=== PATIENT | male | born 1970 | race Caucasian/White ===

== ENCOUNTER 2021-04-16 01:57 | Day surgery (SDC) | payer OTHER, SELFPAY ==
[2021-04-02 13:06] VITALS: BMI 29.2
--- NOTE | 2021-04-16 09:25 | WPDANESEPPF ---
Anes - Initial Pre Proc Eval Procedure: Operation Date: 04/16/21 12:15 Proposed Procedures p Screening Colonoscopy - Last Reina MD Date/Time: 04/16/21 09:25 Surgeon: Last Reina MD Pre Op Diagnosis: neoplasm screening Patient Data Age: 50 Gender: M Height: 1.8 m Weight: 95 kg Allergies Allergy/AdvReac Type Severity Reaction Status Date / Time Penicillins Allergy Unknown unknown Verified 04/16/21 11:12 Home Medications Medication Instructions Recorded Confirmed Type acetaminophen 500 mg tablet 500 mg PO Q4-6H PRN tablet 08/17/19 04/02/21 History omeprazole 40 mg capsule,delayed 40 mg PO DAILY cap 02/12/21 04/02/21 History release tamsulosin 0.4 mg capsule 0.4 mg PO DAILY cap 02/12/21 04/02/21 History tizanidine 4 mg capsule 4 mg PO TID PRN #90 cap 02/12/21 04/02/21 Rx simvastatin 20 mg tablet 20 mg PO DAILY #90 tablet 02/17/21 04/02/21 Rx Patient hx anesthesia problems: none Family hx anesthesia problems: none PMFSH Past Medical History Medical History Body mass index (bmi) 28.0-28.9, adult (10/21/15) BPH (benign prostatic hyperplasia) (~1999) Chronic bilateral low back pain with sciatica (~2010) Chronic low back pain Former smoker GERD without esophagitis Major depress, part remis (~2015) KING (obstructive sleep apnea) (~2011) Other hyperlipidemia (~2008) Surgical History Surgical History History of surgery on left wrist 2011 - left wrist arthrodesis from multiple falls S/P epidural steroid injection (~11/2018) Family History Family History Father Family history of suicide Diabetes mellitus Grandparent Family history of malignant neoplasm Family history of chronic obstructive pulmonary disease Family history of Alzheimer's disease Social History Social History Smoking packs per day: 0.75 Smoking cigarettes per day: 15.0 Years smoked: 18 Smoking pack-years: 13.50 Smoking status: Former smoker Tobacco type: cigarettes Smoking end date: 10/04/05 Alcohol intake: current Substance use: never Substance use type: does not use Living arrangements: with family Gender identity (if verbalized by the patient): Male Spiritual care concerns: No Anes - Eval Final PreProcedure Day of Procedure 04/16/21 09:25 Patient weight: overweight Heart: regular rate and rhythm Lungs: clear to auscultation and normal air movement Airway: Mallampati scale class II Neurological: alert and oriented Last oral intake: >/= 8 hours ASA classification: II Emergent: no Anesthetic plan: proceed Anesthesia type and monitoring: general GIVS Informed Consent: The patient's anesthetic plan and its attendant risks and benefits were discussed with the patient/family/POA. Questions were solicited and answers provided to the satisfaction of the patient/family/POA.
[2021-04-16 11:13] VITALS: BP 125/85; PULSE 69; RESP 18; TEMP 36.6; O2SAT 98
[2021-04-16] MEDS: LACTATED RINGERS 1,000 ML 150 ML IV CONT (11:16)
--- NOTE | 2021-04-16 11:51 | PM.HPGS ---
History of Present Illness History of Present Illness Consent: Risks, benefits, and alternatives have been discussed and questions answered. Patient agrees to proceed with procedure. Chief complaint: neoplasm screening Narrative: Phoenix Kendall is a 50 year old male here for screening colonoscopy, he had one 10 years ago because rectal bleeding (due to hemorrhoids), now asymptomatic. Review of Systems Constitutional: Constitutional: Denies headache(s) and Denies weakness Eyes: Eyes: Denies blurry vision ENT: Reports Normal hearing present, Denies headache(s) and Denies neck pain Cardiovascular: Cardiovascular: Denies chest pain and Denies dyspnea Respiratory: Respiratory: Denies dyspnea Gastrointestinal: Gastrointestinal: Reports no additional gastrointestinal complaints Genitourinary: Genitourinary: Denies dysuria Musculoskeletal: Musculoskeletal: Denies neck pain Integumentary/Breasts: Skin/Breast: Denies dry skin Neurologic: Reports Normal hearing present, Denies headache(s) and Denies weakness Psychiatric: Psychiatric: Denies anxiety Endocrine: Endocrine: Denies change in body appearance Hematologic/Lymphatic: Hematologic/Lymphatic: Denies easy bleeding Allergic/Immunologic: Allergic/Immunologic: Denies urticaria [facility] Past Medical History Medical History (Updated 04/16/21 @ 11:52 by Last Reina MD) Body mass index (bmi) 28.0-28.9, adult (10/21/15) BPH (benign prostatic hyperplasia) (~1999) Chronic bilateral low back pain with sciatica (~2010) Chronic low back pain Colon cancer screening Former smoker GERD without esophagitis Major depress, part remis (~2015) KING (obstructive sleep apnea) (~2011) Other hyperlipidemia (~2008) Surgical History Surgical History History of surgery on left wrist 2011 - left wrist arthrodesis from multiple falls S/P epidural steroid injection (~11/2018) Family History Family History Father Family history of suicide Diabetes mellitus Grandparent Family history of malignant neoplasm Family history of chronic obstructive pulmonary disease Family history of Alzheimer's disease Social History Social History Smoking packs per day: 0.75 Smoking cigarettes per day: 15.0 Years smoked: 18 Smoking pack-years: 13.50 Smoking status: Former smoker Tobacco type: cigarettes Smoking end date: 10/04/05 Alcohol intake: current Substance use: never Substance use type: does not use Living arrangements: with family Gender identity (if verbalized by the patient): Male Spiritual care concerns: No Meds Home Medications and Allergies Home Medications Medication Instructions Recorded Confirmed Type acetaminophen 500 mg tablet 500 mg PO Q4-6H PRN tablet 08/17/19 04/02/21 History omeprazole 40 mg capsule,delayed 40 mg PO DAILY cap 02/12/21 04/02/21 History release tamsulosin 0.4 mg capsule 0.4 mg PO DAILY cap 02/12/21 04/02/21 History tizanidine 4 mg capsule 4 mg PO TID PRN #90 cap 02/12/21 04/02/21 Rx simvastatin 20 mg tablet 20 mg PO DAILY #90 tablet 02/17/21 04/02/21 Rx Allergies Allergy/AdvReac Type Severity Reaction Status Date / Time Penicillins Allergy Unknown unknown Verified 04/16/21 11:12 Vital Signs Vital Signs - 24 hr 04/16/21 11:13 Temperature 97.8 F Pulse Rate 69 Respiratory Rate 18 Blood Pressure 125/85 Pulse Oximetry 98 Exam Const: General: comfortable and no acute distress HENMT: General nose exam: Normal nares present Eyes: General: appearance normal, both eyes and all related structures Neck: Neck: no JVD Resp: Auscultation: clear to auscultation bilaterally Cardio: Rate: regular rate Rhythm: regular rhythm GI: Inspection: non-distended GI Palp: Yes Soft to palpation Skin: General skin exam: normal
[2021-04-16 12:17] VITALS: BP 109/65; PULSE 70; RESP 16; O2SAT 92
[2021-04-16 12:27] VITALS: BP 110/68; PULSE 66; RESP 18; O2SAT 98
[2021-04-16 12:37] VITALS: BP 126/86; PULSE 57; RESP 26; O2SAT 99
== END 2021-04-16 12:52 | disposition home or self-care (01) ==
PROVIDERS: PCP Family Medicine; Visit Provider Internal Medicine Gastroenterology
PROC: 0DJD8ZZ Inspection of Lower Intestinal Tract, Via Natural or Artificial Opening Endoscopic (ICD-10-PCS; CPT 45378; principal; 2021-04-16 12:15)
DX: Z12.11 Encounter for screening for malignant neoplasm of colon (principal); D12.2 Benign neoplasm of ascending colon; K64.8 Other hemorrhoids; N40.0 Benign prostatic hyperplasia without lower urinary tract symptoms; K21.9 Gastro-esophageal reflux disease without esophagitis; F32.9 Major depressive disorder, single episode, unspecified; E78.5 Hyperlipidemia, unspecified; G47.33 Obstructive sleep apnea (adult) (pediatric); Z87.891 Personal history of nicotine dependence
CPT/HCPCS: 45380; 88305; J2704; J7120

== ENCOUNTER 2021-06-23 13:19 | Outpatient (CLI) | payer OTHER, SELFPAY ==
--- NOTE | 2021-06-23 13:30 | ECG_ITS ---
Measurements Intervals [place] Rate: 53 P: 32 [place]: 136 QRS: 11 QRSD: 109 T: 10 QT: 415 QTc: 390 Interpretive Statements SINUS BRADYCARDIA DELAYED PRECORDIAL R/S TRANSITION BASELINE ARTIFACT- I, III BORDERLINE ECG Electronically Signed On 06-23-2021 13:32:25 CDT by Darin Ames D.O.
== END 2021-06-23 13:20 | disposition home or self-care (01) ==
LOC: ANHSURGERY 13:22
PROVIDERS: PCP Family Medicine; Visit Provider Urology
DX: E78.49 Other hyperlipidemia (principal); Z01.818 Encounter for other preprocedural examination; R94.31 Abnormal electrocardiogram [ECG] [EKG]
CPT/HCPCS: 93005

== ENCOUNTER 2021-07-03 01:44 | Day surgery (SDC) | payer OTHER, SELFPAY ==
--- NOTE | 2021-06-06 07:39 | PM.HPGS ---
History of Present Illness History of Present Illness Consent: Risks, benefits, and alternatives have been discussed and questions answered. Patient agrees to proceed with procedure. Chief complaint: BPH Narrative: Phoenix Kendall is a 50 year old male Who has been a patient in our practice since September 2017. He has prostatism that is becoming refractory to standard medical management. After discussion of therapeutic options, including ongoing medical therapy, TURP, other minimally invasive procedures for BPH (Rezum, Green-light ablation, etc), he has elected to proceed with Urolift. He is aware the risk of this procedure including, but not limited to, adverse cardiopulmonary events, postoperative bleeding, persistent voiding symptoms. His prostate measured 18 g by ultrasound and cystoscopy showed no median lobe. Review of Systems Cardiovascular: Cardiovascular: Denies chest pain, Denies lightheadedness, Denies palpitations and Denies dyspnea Respiratory: Respiratory: Denies dyspnea Gastrointestinal: Gastrointestinal: Denies diarrhea, Denies nausea and Denies vomiting Genitourinary: Genitourinary: Denies hematuria and Denies dysuria Endocrine: Endocrine: Denies palpitations PMFSH Past Medical History Medical History Body mass index (bmi) 28.0-28.9, adult (10/21/15) BPH (benign prostatic hyperplasia) (~1999) Chronic bilateral low back pain with sciatica (~2010) Chronic low back pain Colon cancer screening Former smoker GERD without esophagitis Major depress, part remis (~2015) KING (obstructive sleep apnea) (~2011) Other hyperlipidemia (~2008) Surgical History Surgical History History of surgery on left wrist 2011 - left wrist arthrodesis from multiple falls S/P epidural steroid injection (~11/2018) Family History Family History Father Family history of suicide Diabetes mellitus Grandparent Family history of malignant neoplasm Family history of chronic obstructive pulmonary disease Family history of Alzheimer's disease Social History Social History Smoking packs per day: 0.75 Smoking cigarettes per day: 15.0 Years smoked: 18 Smoking pack-years: 13.50 Smoking status: Former smoker Tobacco type: cigarettes Smoking end date: 10/04/05 Alcohol intake: current Substance use: never Substance use type: does not use Gender identity (if verbalized by the patient): Male Sexual Orientation (if Verbalized by the Patient): Straight or Heterosexual Spiritual care concerns: No Meds Home Medications and Allergies Home Medications Medication Instructions Recorded Confirmed Type acetaminophen 500 mg tablet 500 mg PO Q4-6H PRN tablet 08/17/19 04/02/21 History omeprazole 40 mg capsule,delayed 40 mg PO DAILY cap 02/12/21 04/02/21 History release tizanidine 4 mg capsule 4 mg PO TID PRN #90 cap 02/12/21 04/02/21 Rx simvastatin 20 mg tablet 20 mg PO DAILY #90 tablet 02/17/21 04/02/21 Rx tamsulosin 0.4 mg capsule 0.4 mg PO DAILY #90 cap 04/29/21 Rx Allergies Allergy/AdvReac Type Severity Reaction Status Date / Time Penicillins Allergy Unknown unknown Verified 04/16/21 11:12 Exam Const: General: no acute distress Resp: Effort & Inspection: normal respiratory effort GI: Inspection: non-distended GI Palp: No abdominal tenderness and No Guarding due to palpation present (GI) Auscultation: normal bowel sounds Assessment and Plan Assessment and plan (1) BPH (benign prostatic hyperplasia): Onset Date: ~1999 Qualifiers: Lower urinary tract symptom presence: unspecified whether lower urinary tract symptoms present Qualified Code(s): N40.0 - Benign prostatic hyperplasia without lower urinary tract symptoms Code(s): N40.0 - Benign pr
[2021-06-10 14:50] VITALS: BMI 29.3
--- NOTE | 2021-06-20 07:51 | PM.HPGS ---
History of Present Illness History of Present Illness Consent: Risks, benefits, and alternatives have been discussed and questions answered. Patient agrees to proceed with procedure. Chief complaint: BPH Narrative: Phoenix Kendall is a 50 year old male with longstanding bladder outlet obstruction secondary to BPH. He has been patient in our practice since September 2017 and had initially responded to tamsulosin. After couple ureter absence he re-presented with progression and voiding symptoms. Cystoscopy showed lateral lobe hyperplasia without a significant median lobe and prostate ultrasound revealed a volume of 18 g. After discussion of therapeutic options including additional medical management, TURP, other minimally invasive procedures for BPH and Uro left, he has elected for the latter. He is aware the risks including, but not limited to, postoperative bleeding, persistent voiding symptoms, hematuria. Review of Systems Cardiovascular: Cardiovascular: Denies chest pain, Denies lightheadedness, Denies palpitations and Denies dyspnea Respiratory: Respiratory: Denies dyspnea Gastrointestinal: Gastrointestinal: Denies diarrhea, Denies nausea and Denies vomiting Genitourinary: Genitourinary: Denies hematuria and Denies dysuria Endocrine: Endocrine: Denies palpitations [facility] Past Medical History Medical History Body mass index (bmi) 28.0-28.9, adult (10/21/15) BPH (benign prostatic hyperplasia) (~1999) Chronic bilateral low back pain with sciatica (~2010) Chronic low back pain Colon cancer screening Former smoker GERD without esophagitis Major depress, part remis (~2015) KING (obstructive sleep apnea) (~2011) Other hyperlipidemia (~2008) Surgical History Surgical History History of surgery on left wrist 2011 - left wrist arthrodesis from multiple falls S/P epidural steroid injection (~11/2018) Family History Family History Father Family history of suicide Diabetes mellitus Grandparent Family history of malignant neoplasm Family history of chronic obstructive pulmonary disease Family history of Alzheimer's disease Social History Social History Smoking packs per day: 1 Smoking cigarettes per day: 20.0 Years smoked: 15 Smoking pack-years: 15.00 Smoking status: Former smoker Tobacco type: cigarettes Smoking end date: 06/10/06 Alcohol intake: current Substance use: never Substance use type: does not use Gender identity (if verbalized by the patient): Male Sexual Orientation (if Verbalized by the Patient): Straight or Heterosexual Spiritual care concerns: No Meds Home Medications and Allergies Home Medications Medication Instructions Recorded Confirmed Type acetaminophen 500 mg tablet 500 mg PO Q4-6H PRN tablet 08/17/19 06/10/21 History omeprazole 40 mg capsule,delayed 40 mg PO DAILY cap 02/12/21 06/10/21 History release tizanidine 4 mg capsule 4 mg PO TID PRN #90 cap 02/12/21 06/10/21 Rx simvastatin 20 mg tablet 20 mg PO DAILY #90 tablet 02/17/21 06/10/21 Rx tamsulosin 0.4 mg PO BID 06/10/21 06/10/21 History lidocaine 5 % topical patch 1 patch TOPICAL DAILY #30 ea 06/12/21 Rx Allergies Allergy/AdvReac Type Severity Reaction Status Date / Time Penicillins Allergy Mild Rash Verified 06/10/21 14:48 Exam Const: General: no acute distress Resp: Effort & Inspection: normal respiratory effort GI: Inspection: non-distended GI Palp: No abdominal tenderness and No Guarding due to palpation present (GI) Auscultation: normal bowel sounds Assessment and Plan Assessment and plan (1) BPH (benign prostatic hyperplasia): Onset Date: ~1999 Qualifiers: Lower urinary tract symptom presence: unspecified whether lower urinary tract symp
--- NOTE | 2021-07-03 06:59 | WPDHPUPDATE1 ---
History and Physical Update Update Date/Time: 07/03/21 06:59 History and Physical has been reviewed, including an updated exam of the patient. There are NO changes in the patient's condition. Risks, benefits, and alternatives have been discussed and questions answered. Patient agrees to proceed with procedure.
[2021-07-03] MEDS: LACTATED RINGERS 1,000 ML 30 ML IV CONT (11:22)
--- NOTE | 2021-07-03 11:48 | WPDANESEPPF ---
Anes - Initial Pre Proc Eval Procedure: Operation Date: 07/03/21 12:30 Proposed Procedures p Urolift - Crow Xiao MD Date/Time: 07/03/21 11:48 Surgeon: Crow Xiao MD Pre Op Diagnosis: BPH Patient Data Age: 50 Gender: M Height: 1.8 m Weight: 92 kg Allergies Allergy/AdvReac Type Severity Reaction Status Date / Time Penicillins Allergy Mild Rash Verified 07/03/21 10:57 Home Medications Medication Instructions Recorded Confirmed Type acetaminophen 500 mg tablet 500 mg PO Q4-6H PRN tablet 08/17/19 07/03/21 History omeprazole 40 mg capsule,delayed 40 mg PO DAILY cap 02/12/21 07/03/21 History release tizanidine 4 mg capsule 4 mg PO TID PRN #90 cap 02/12/21 07/03/21 Rx simvastatin 20 mg tablet 20 mg PO DAILY #90 tablet 02/17/21 07/03/21 Rx tamsulosin 0.4 mg PO BID 06/10/21 07/03/21 History lidocaine 5 % topical patch 1 patch TOPICAL DAILY #30 ea 06/12/21 07/03/21 Rx Patient hx anesthesia problems: none Family hx anesthesia problems: none Results Review: All pre-operative results and documents have been reviewed as part of the pre-operative evaluation. [facility] Past Medical History Medical History Body mass index (bmi) 28.0-28.9, adult (10/21/15) BPH (benign prostatic hyperplasia) (~1999) Chronic bilateral low back pain with sciatica (~2010) Chronic low back pain Colon cancer screening Former smoker GERD without esophagitis Major depress, part remis (~2015) KING (obstructive sleep apnea) (~2011) Other hyperlipidemia (~2008) Surgical History Surgical History History of surgery on left wrist 2011 - left wrist arthrodesis from multiple falls S/P epidural steroid injection (~11/2018) Family History Family History Father Family history of suicide Diabetes mellitus Grandparent Family history of malignant neoplasm Family history of chronic obstructive pulmonary disease Family history of Alzheimer's disease Social History Social History Smoking packs per day: 1 Smoking cigarettes per day: 20.0 Years smoked: 15 Smoking pack-years: 15.00 Smoking status: Former smoker Tobacco type: cigarettes Smoking end date: 06/10/06 Alcohol intake: current Substance use: never Substance use type: does not use Living arrangements: with family Gender identity (if verbalized by the patient): Male Sexual Orientation (if Verbalized by the Patient): Straight or Heterosexual Spiritual care concerns: No Anes - Eval Final PreProcedure Day of Procedure 07/03/21 11:48 Patient weight: overweight Heart: regular rate and rhythm Lungs: clear to auscultation Airway: Mallampati scale class II Neurological: alert and oriented Last oral intake: >/= 8 hours ASA classification: II Emergent: no Anesthetic plan: proceed Anesthesia type and monitoring: general GIVS and standard monitoring Results Review: All pre-operative results and documents have been reviewed as part of the pre-operative evaluation. Informed Consent: The patient's anesthetic plan and its attendant risks and benefits were discussed with the patient/family/POA. Questions were solicited and answers provided to the satisfaction of the patient/family/POA.
--- NOTE | 2021-07-03 12:23 | SUR.PREOP ---
pt aware of delay in procedure.
--- NOTE | 2021-07-03 12:24 | SUR.PREOP ---
pt informed of delay in procedure.
[2021-07-03] MEDS: ceFAZolin 2 GM/D5W 50 ML 2 GM/50 ML BAG IVPB (13:19)
[2021-07-03] MEDS: LIDOCAINE HCL 2% GEL UROJET 10 ML PKG MUCOUS MEM (13:36)
--- NOTE | 2021-07-03 13:42 | SUR.OPER ---
urojet implants x4 lot [id number], [id number] Exp 2022-5
--- NOTE | 2021-07-03 13:44 | W.PM.PROC2 ---
Procedure Note - Detailed Date of Procedure 07/03/21 Pre-op Diagnosis BPH Post-op Diagnosis same Procedure Performed UroLift Surgeon Crow Xiao MD Anesthesia general Description of Procedure The patient was prepped and draped in a routine fashion after the uneventful induction of a general LMA anesthetic. A 20F cystoscope was inserted into the bladder. The cystoscopy bridge was replaced with a UroLift delivery device. The first treatment site was the patient's right side approximately 1.5cm distal to the bladder neck. The distal tip of the delivery device was then angled laterally approximately 20 degrees at this position to compress the lateral lobe. The trigger was pulled, thereby deploying a needle containing the implant through the prostate. The needle was then retracted, allowing one end of the implant to be delivered to the capsular surface of the prostate. The implant was then tensioned to assure capsular seating and removal of slack monofilament. The device was then angled back toward midline and slowly advanced proximally (typically 3 to 4 mm) until cystoscopic verification of the monofilament being centered in the delivery bay. The urethral end piece was then affixed to the monofilament thereby tailoring the size of the implant. Excess filament was then severed. The delivery device was then re-advanced into the bladder. The delivery device was then replaced with cystoscope and bridge and the implant location and opening effect was confirmed cystoscopically. The same procedure was then repeated on the left side, and two additional implants were delivered just proximal to the verumontanum, again one on right and one on left side of the prostate, following the same technique. Therefore, a total of[4 implants were delivered. A final cystoscopy was conducted first to inspect the location and state of each implant and second, to confirm the presence of a continuous anterior channel was present through the prostatic urethra with irrigation flow turned off. The bladder was then filled with 150 cc irrigation fluid to assist the patient in void trial after the procedure, and all instruments were removed. At this point the cystoscope was removed and the patient was taken to the PACU in good condition. Estimated Blood Loss 0 Drains No Packing No Pathology none sent Complications No immediate complications Condition stable Disposition PACU
[2021-07-03 13:49] VITALS: BP 105/87; PULSE 87; RESP 16; O2SAT 98
[2021-07-03 14:15] VITALS: BP 108/73; PULSE 95; RESP 16
[2021-07-03] MEDS: oxyCODONE HCL (*CRX) 5 MG TAB IR PO (14:36)
[2021-07-03 14:45] VITALS: BP 117/77; PULSE 92; RESP 16
== END 2021-07-03 14:55 | disposition home or self-care (01) ==
PROVIDERS: PCP Family Medicine; Visit Provider Urology
PROC: 0T7D8DZ Dilation of Urethra with Intraluminal Device, Via Natural or Artificial Opening Endoscopic (ICD-10-PCS; CPT 52441; principal; 2021-07-03 12:30)
DX: N40.1 Benign prostatic hyperplasia with lower urinary tract symptoms (principal); N13.9 Obstructive and reflux uropathy, unspecified; K21.9 Gastro-esophageal reflux disease without esophagitis; G47.33 Obstructive sleep apnea (adult) (pediatric); E78.49 Other hyperlipidemia; Z87.891 Personal history of nicotine dependence
CPT/HCPCS: C9740; A9270; J0690; J2250; J2704; J3010; J7120; L8699

== ENCOUNTER 2022-08-29 06:12 | Emergency (ER) | payer OTHER, SELFPAY ==
--- NOTE | ~2022-08-29 | XR_ITS ---
XR chest 1V portable DATE: 08/29/2022 06:35 INDICATION: Cough, shortness of breath, fever TECHNIQUE: Portable upright AP chest on 08/29/2022 at 0627 hours COMPARISON: None FINDINGS: No pulmonary infiltrate or consolidation, pleural effusion or pulmonary vascular congestion or pneumothorax is detected. Heart size is likely within normal limits considering magnification ass ociated with AP projection. Included skeletal structures are unremarkable. IMPRESSION: No active cardiopulmonary disease Reviewed, dictated and finalized at location A. GE ATTENDANT
[2022-08-29 06:16] VITALS: BP 159/90; PULSE 83; RESP 24; TEMP 36.7; O2SAT 98
--- NOTE | 2022-08-29 06:27 | ECG_ITS ---
Measurements Intervals [place] Rate: 75 P: 23 [place]: 135 QRS: 5 QRSD: 96 T: 1 QT: 363 QTc: 408 Interpretive Statements SINUS RHYTHM BORDERLINE ST-T WAVE ABNORMALITY- INFERIOR LEADS BORDERLINE ECG COMPARED TO ECG 06/23/2021 13:32:34 SINUS RHYTHM NOW PRESENT Electronically Signed On 08-29-2022 9:47:00 HORTICULTURE SUPERINTENDENT by Darin Ames D.O.
[2022-08-29 07:16] LABS: Influenza A QL RT-PCR Positive (Negative); Influenza B QL RT-PCR Negative (Negative); SARS-CoV-2 RNA PCR Negative
[2022-08-29 07:22] VITALS: BP 141/87; PULSE 73; RESP 18; O2SAT 99
--- NOTE | 2022-08-29 07:54 | ED.URI ---
HPI - URI/Sore Throat General Chief Complaint: Upper Respiratory Infection Stated Complaint: SOB, cough Time Seen by Provider: 08/29/22 07:05 History of Present Illness HPI Narrative: Patient is a 51-year-old male who presents to the ER with cold symptoms. Began having fevers and body aches and fatigue yesterday. Associated sinus congestion and cough. No chest pain or chest pressure. No known sick contacts. He is immunized against influenza. Related Data Home Medications Medication Instructions Recorded Confirmed acetaminophen 500 mg tablet 500 mg PO Q4-6H PRN Pain 08/17/19 08/12/22 (Tylenol Extra Strength) acetaminophen 325 mg-codeine 30 mg 1 tablet PO Q4-6H PRN 08/12/22 08/12/22 tablet omeprazole 40 mg capsule,delayed 40 mg PO DAILY 08/12/22 08/12/22 release Allergies Allergy/AdvReac Type Severity Reaction Status Date / Time Penicillins Allergy Mild Rash Verified 08/12/22 15:00 Review of Systems Review of Systems: All systems reviewed & are unremarkable except as noted in HPI and below Constitutional: Constitutional: Reports chills, Reports fatigue and Reports fever(s) ENT: Reports nasal congestion and Denies sore throat Cardiovascular: Cardiovascular: Denies chest pain, Denies rapid heart rate and Denies radiating jaw, neck or arm pain Respiratory: Respiratory: Reports cough, Denies dyspnea and Denies wheezing Gastrointestinal: Gastrointestinal: Denies abdominal pain, Denies nausea and Denies vomiting Musculoskeletal: Musculoskeletal: Reports myalgias PMFSH Past Medical History Medical History BPH (benign prostatic hyperplasia) (~1999) Chronic bilateral low back pain with sciatica (~2010) Chronic low back pain Former smoker GERD without esophagitis Major depress, part remis (~2015) KING (obstructive sleep apnea) (~2011) Other hyperlipidemia (~2008) Urolith (~2020) Uses continuous positive airway pressure (CPAP) ventilation at home Surgical History Surgical History History of prostate surgery (~06/2021) s/p urolift History of surgery on left wrist 2011 - left wrist arthrodesis from multiple falls S/P epidural steroid injection (~11/2018) Family History Family History Father Family history of suicide Diabetes mellitus Grandparent Family history of malignant neoplasm Family history of chronic obstructive pulmonary disease Family history of Alzheimer's disease Social History Social History Smoking packs per day: 1 Smoking cigarettes per day: 20.0 Years smoked: 15 Smoking pack-years: 15.00 Smoking status: Former smoker Tobacco type: cigarettes Smoking end date: 06/10/06 Alcohol intake: current Substance use: never Substance use type: does not use Gender identity (if verbalized by the patient): Male Sexual Orientation (if Verbalized by the Patient): Straight or Heterosexual Spiritual care concerns: No Exam Narrative: GENERAL: Well-appearing, well-nourished, and in no acute distress. HEAD: Normocephalic, atraumatic. CHEST: Clear to auscultation. No respiratory distress. HEART: Regular rate and rhythm. Normal peripheral pulses. EXTREMITIES: Normal range of motion. No edema. SKIN: Warm, dry, no rash. NEURO: Alert and oriented x3. PSYCH: Normal mood and affect. Course Course Emergency Course: Patient informed of results. Discharge with Tamiflu. Vital Signs Vital signs: Vital Signs Temperature 98.1 F 08/29/22 06:16 Pulse Rate 83 08/29/22 06:16 Respiratory Rate 24 H 08/29/22 06:16 Blood Pressure 159/90 H 08/29/22 06:16 Pulse Oximetry 98 08/29/22 06:16 Oxygen Delivery Room Air 08/29/22 06:16 Temperature 98.1 F 08/29/22 06:16 Pulse Rate 73 08/29/22 07:22 Respiratory Rate 18 08/29/22 0
[2022-08-29 08:37] VITALS: BP 140/82; PULSE 81; RESP 17; O2SAT 99
== END 2022-08-29 08:38 | disposition home or self-care (01) ==
PROVIDERS: Emergency Medicine; Emergency Provider Emergency Medicine; PCP Family Medicine
DX: J10.1 Influenza due to other identified influenza virus with other respiratory manifestations (principal); Z20.822 Contact with and (suspected) exposure to COVID-19; E78.49 Other hyperlipidemia; K21.9 Gastro-esophageal reflux disease without esophagitis; N40.0 Benign prostatic hyperplasia without lower urinary tract symptoms; G47.33 Obstructive sleep apnea (adult) (pediatric); Z87.442 Personal history of urinary calculi; Z87.891 Personal history of nicotine dependence; R94.31 Abnormal electrocardiogram [ECG] [EKG]
CPT/HCPCS: 71045; 87636; 93005; 99283

== ENCOUNTER 2023-01-30 09:43 | Emergency (ER) | payer OTHER, SELFPAY ==
[2023-01-30 09:55] VITALS: BP 137/84; PULSE 66; RESP 16; TEMP 36.4; O2SAT 100
--- NOTE | 2023-01-30 10:11 | ED.MALEGU ---
HPI - Male Genitourinary General Chief complaint: Urogenital-Male Stated complaint: uti Time Seen by Provider: 01/30/23 10:11 Source: patient, RN notes reviewed and old records reviewed Mode of arrival: ambulatory Limitations: no limitations History of Present Illness HPI Narrative: 52 year old male who presents to [facility] care with complaints of burning with urination and urgency and frequency of urination for the past 2-3 days. Patient reports that he has normal nocturia of 2-3 times nightly but was up 6-7 times last night urinating. Patient is patient of Dr Xiao and has had history of BPH since age 29 was placed back on Flomax by urology. Patient reports some groin pressure but denies any testicular pain, reports did have some brownish tinged discharge with urine X1, denies any concern for STD's. Patient reports history of past kidney stone and has had past uro-lift which has failed. Patient denies any fevers, chills or sweats, denies any acute episode of back pain though history of chronic back problems. MD Complaint: dysuria and other (urgency, frequency and nocturia.) Onset (ago): day(s) (2-3) Severity scale (1-10): 3 Related Data Home Medications Medication Instructions Recorded Confirmed acetaminophen 500 mg tablet 500 mg PO Q4-6H PRN Pain 08/17/19 01/30/23 (Tylenol Extra Strength) tamsulosin 0.4 mg capsule 0.4 mg PO DAILY 01/30/23 01/30/23 Allergies Allergy/AdvReac Type Severity Reaction Status Date / Time Penicillins Allergy Mild Rash Verified 01/30/23 09:58 mushroom Allergy Vomiting Verified 01/30/23 09:58 Review of Systems Review of Systems: CONSTITUTIONAL: Denies fever, chills, or sweats. CARDIOVASCULAR: Denies chest pain, palpitations, or edema. RESPIRATORY: Denies cough or dyspnea. GASTROINTESTINAL: Denies abdominal pain, nausea, vomiting, or diarrhea. GENITOURINARY: Reports dysuria, frequency, urgency. Denies flank pain or visible hematuria. some groin pressure,denies testicular pain SKIN: Denies rash or itching. MUSCULOSKELETAL: Chronic back pain or myalgia. Denies CVA tenderness NEUROLOGIC: Denies headache All systems reviewed & are unremarkable except as noted in HPI and below [facility] Past Medical History Medical History BPH (benign prostatic hyperplasia) (~1999) Chronic bilateral low back pain with sciatica (~2010) Chronic low back pain Former smoker GERD without esophagitis Major depress, part remis (~2015) KING (obstructive sleep apnea) (~2011) Other hyperlipidemia (~2008) Urolith (~2020) Uses continuous positive airway pressure (CPAP) ventilation at home Surgical History Surgical History History of prostate surgery (~06/2021) s/p urolift History of surgery on left wrist 2011 - left wrist arthrodesis from multiple falls S/P epidural steroid injection (~11/2018) Family History Family History Father Family history of suicide Diabetes mellitus Grandparent Family history of malignant neoplasm Family history of chronic obstructive pulmonary disease Family history of Alzheimer's disease Social History Social History Smoking packs per day: 1 Smoking cigarettes per day: 20.0 Years smoked: 15 Smoking pack-years: 15.00 Smoking status: Former smoker Tobacco type: cigarettes Smoking end date: 06/10/06 Alcohol intake: current Substance use: never Substance use type: does not use Living arrangements: with family Occupation/Education: occupation Gender identity (if verbalized by the patient): Male Sexual Orientation (if Verbalized by the Patient): Straight or Heterosexual Spiritual care concerns: No Comments At time of signature, agree with nursing past medical, surgical, social and family history. There is no relevant family histor
== END 2023-01-30 10:41 | disposition home or self-care (01) ==
PROVIDERS: Emergency Provider Registered Nurse
DX: N34.2 Other urethritis (principal); E78.5 Hyperlipidemia, unspecified; Z87.891 Personal history of nicotine dependence
CPT/HCPCS: 81003; 87086; 99213; G0463

== ENCOUNTER 2023-02-01 16:11 | Outpatient (CLI) | payer OTHER, SELFPAY ==
--- NOTE | ~2023-02-01 | XR_ITS ---
EXAM: XR abdomen/kub 1V DATE: 02/01/2023 16:53 HISTORY: LEFT URETERAL STONE . COMPARISON: CT abdomen and pelvis, same date. FINDINGS: Clear lung bases. Normal bowel gas pattern. No organomegaly. Pelvic phleboliths. 6 mm left UVJ stone. Regional bones and soft tissues normal for age. Prostate seeds. IMPRESSION: 6 mm UVJ stone. Reviewed, dictated and finalized at location K. IMPRESSION: 6 mm UVJ stone.
--- NOTE | ~2023-02-01 | CT_ITS ---
EXAMINATION: CT abdomen pelvis wo con DATE: 02/01/2023 16:29 INDICATION: Left flank pain. Left ureteral stone. TECHNIQUE: Computed tomography (CT) of the abdomen and pelvis was performed without intravenous contr ast. Automated exposure control and iterative reconstruction technique were employed. The dose-length product was 239.57 mGy-cm. COMPARISON: None. FINDINGS: The visualized portions of the lung bases demonstrate minimal atelectasis. There is a pneum atocele in right lower lobe. No pleural effusion. The heart size is normal. No pericardial effusion. The liver, gallbladder, spleen, pancreas, adrenal glands, and kidneys are normal. There is a 6 mm sto ne at left ureterovesicular junction. There are brachytherapy seeds in the prostate. There are no dil ated loops of bowel. The appendix is normal. There are no pathologically enlarged lymph nodes. There is no free intraperitoneal fluid. There is a supraumbilical ventral hernia containing fat. There is s evere lower lumbar spondylosis. IMPRESSION: 1. 6 mm stone at left ureterovesicular junction. No hydronephrosis. Reviewed, dictated and finalized at location A.
== END 2023-02-01 16:12 | disposition home or self-care (01) ==
PROVIDERS: PCP Family Medicine; Visit Provider Urology
DX: N20.1 Calculus of ureter (principal)
CPT/HCPCS: 74018; 74176

== ENCOUNTER 2023-02-08 13:22 | Outpatient (CLI) | payer OTHER, SELFPAY ==
--- NOTE | ~2023-02-08 | XR_ITS ---
XR abdomen/kub 1V 02/08/2023 13:32 INDICATION: Left ureteral stone TECHNIQUE: KUB COMPARISON: 02/01/2023 FINDINGS: Bowel gas pattern is normal. There are pelvic phleboliths. There is no evidence of free air , mass, organomegaly, ascites or obstruction. No abnormal calculi are seen. The bones appear intact . IMPRESSION: 1: No acute abdominal abnormality identified. Reviewed, dictated and finalized at location B.
== END 2023-02-08 13:23 | disposition home or self-care (01) ==
LOC: ANHIMG 13:24
PROVIDERS: PCP Family Medicine; Visit Provider Urology
DX: N20.1 Calculus of ureter (principal)
CPT/HCPCS: 74018